=== PATIENT | male | born 1985 | race Two or more races ===

== ENCOUNTER 2020-11-24 11:14 | Emergency (ER) | payer OTHER ==
[~2020-11-24] VITALS: Ht 172.7 cm; Wt 90.7 kg
[~2020-11-24 11:14] MED LIST: CEPHALEXIN500 MG; CIPRO500 MG PO; INTESTINEX1 CA1 PO; KEFLEX500 MG PO; LEVAQUIN750 MG PO
== END 2020-11-24 15:47 | disposition home or self-care (01) ==
LOC: ER 11:14
DX: U07.1 COVID-19 (principal)

== ENCOUNTER 2025-04-05 09:17 | Emergency (ER) | payer OTHER ==
[~2025-04-05] VITALS: Ht 175.3 cm; Wt 92.5 kg
[2025-04-05 09:23] VITALS: BP 120/75; O2SAT 92
[2025-04-05] MEDS ORDERED: KETOROLAC TROMETHAMINE 30 MG VIAL IM ONE (09:45)
[2025-04-05] MEDS ORDERED: KETOROLAC TROMETHAMINE 30 MG VIAL ONE (09:57)
[2025-04-05] MEDS ORDERED: DEXAMETHASONE SODIUM PHOSPHATE 4 MG/ML VIAL IM ONE (14:00)
[2025-04-05] MEDS ORDERED: DEXAMETHASONE SODIUM PHOSPHATE 4 MG/ML VIAL ONE (14:03)
== END 2025-04-05 14:33 | disposition home or self-care (01) ==
LOC: ER 09:17
DX: S80.02XA Contusion of left knee, initial encounter (principal); V19.9XXA Pedal cyclist (driver) (passenger) injured in unspecified traffic accident, initial encounter; Y93.55 Activity, bike riding; Y92.413 State road as the place of occurrence of the external cause